=== PATIENT | male | born 1955 | race Caucasian/White ===

== ENCOUNTER 2020-09-08 07:48 | Observation (INO) | payer OTHER ==
[~2020-09-08] VITALS: Ht 182.9 cm; Wt 97.5 kg
[2020-09-08] VITALS (14 sets, daily range): BP systolic 109–168; BP diastolic 58–90
--- NOTE | ~2020-09-08 | D ---
[address] [address] DISCHARGE SUMMARY Name: RADHA SANTOS Room: [address] Efren MGiovanniRGiovanni#: [id number] Admission: 09/08/20 Attend Phys: Michael Vargas MD, Discharge: Date of : 57 Report #: [id number] THIS REPORT FOR: cc: John Stroud MD, Michael S. MD ~ Michael Vargas MD [facility] FINAL DISCHARGE DIAGNOSES: 1. Unstable angina. 2. Coronary artery disease. 3. Status post PCI to the LAD and first diagonal. 4. Hypertension. 5. Hyperlipidemia. 6. Type 2 diabetes. PROCEDURES: 09/08/2020 -- left heart catheterization, left ventriculography, selective coronary arteriography and atherectomy with stenting of the LAD with angioplasty and stenting of the first diagonal branch of the LAD. HISTORY OF PRESENT ILLNESS AND HOSPITAL COURSE: The patient is a very pleasant 64-year-old male with complex coronary artery disease, status post remote inferior infarction and multivessel stenting. Of late, he has noted recrudescence of chest pain typical of his prior anginal syndrome, brought on by moderate amount of activity. He has underlying hypertension, hypercholesterolemia, and diabetes. He is compliant with antihypertensives, antiplatelets, lipid lowering, and oral diabetic therapy without side effects of same. In that context, I performed cardiac catheterization on 09/08/2020. That study revealed significant coronary artery disease characterized by 80% distal LAD stenosis with tandem 80% and 90% proximal and mid first diagonal stenosis. There was a widely patent proximal-mid LAD stent. The circumflex demonstrated a 50% proximal, 75% mid and distal stenosis. The right coronary artery demonstrated a widely patent stent with no significant narrowings. LV function was low normal and estimated ejection fraction of 50% with mid anterior hypokinesis. Given this data, I elected to proceed with PCI, performing atherectomy with stenting of the distal LAD with 10% residual narrowing and angioplasty with stenting of the first diagonal branch with 10% residual narrowing following stent deployment and ALBERT 3 flow of the distal vessel. The patient did well post-procedurally without chest pain. Troponin remained in the reference range of less than 0.06. Additional lab was with hemoglobin of 13.5, white blood cell count 7600, and 163,000 platelets. Sodium 140, potassium [facility] [address] [place] [address] DISCHARGE SUMMARY Name: RADHA SANTOS Room: [address]#: [id number] Admission: 09/08/20 Attend Phys: Michael Vargas MD, Discharge: Date of : 57 Report #: [id number] 3.8, BUN 9, creatinine 0.9, cholesterol 182, LDL 100, triglycerides 237. The patient ambulated in the hallways without difficulty and there was good hemostasis at the right femoral site of catheterization. DISCHARGE MEDICATIONS: He was discharged to home on the following medications: Lisinopril 20 mg daily, metoprolol tartrate 25 mg b.i.d., p.r.n. sublingual nitroglycerin, Crestor 40 mg daily, amlodipine 5 mg daily, glimepiride 4 mg b.i.d., metformin 1000 mg daily to be resumed on 09/10/2020. I will plan to see the patient in the office in 4 weeks for clinical followup. He may require staged intervention of the circumflex. These issues were discussed in detail with the patient. Therefore, the patient is discharged to home in stable condition on the aforementioned medications with followup as iterated above. By: 1020 1057Michael Vargas MD, FACC /nt
[~2020-09-08 07:48] MED LIST: AMARYL4 MG PO; ASPIRIN EC325 M1 PO; ASPIRIN81 M2 PO; CRESTOR40 MG PO; EFFIENT10 MG PO; FISH OIL 1,0001 EAC5 PO; GLUCOPHAGE1000 MG PO; LISINOPRIL-HCT1 EAC2 PO; LOPRESSOR25 PO; METAMUCIL0.52 GM PO; MULTIVITAMINS1 EAC7 PO; NITROGLYCERIN0.4 MG SL; NORVASC5 MG PO; PLAVIX 75 MG TA75 MG PO; PRINIVIL10 MG PO
[2020-09-08 08:52] LABS: HEMATOCRIT 47.9 % (42.0-52.0); HEMOGLOBIN 16.4 gm/dL (14.0-18.0); MCH 30.7 pg (26.0-34.0); MCHC 34.2 g/dL (28.0-37.0); MCV 89.5 fL (80.0-100.0); RBC 5.35 mil/uL (4.50-6.00); RDW-CV 13.4 % (10.5-14.5); WBC 8.3 thou/uL (4.0-11.0)
[2020-09-08 09:02] LABS: APTT 22.5 Seconds (25.0-31.3); INR 0.9
[2020-09-08 09:23] LABS: ALBUMIN 4.3 g/dL (3.4-5.0); ALKALINE PHOSPHATASE 66 U/L (46-116); ANION GAP 10 mmol/L (7-16); BUN 10 mg/dL (7-18); CALCIUM 9.1 mg/dL (8.5-10.1); CHLORIDE 100 mmol/L (98-107); CHOLESTEROL 182 mg/dL (<200); CO2 27 mmol/L (21-32); CREATININE 0.9 mg/dL (0.6-1.3); GLUCOSE 181 mg/dL (70-99); HDL CHOLESTEROL 35 mg/dL (>40); LDL CHOLESTEROL 100 mg/dL (<100); POTASSIUM 3.8 mmol/L (3.5-5.1); SGOT 17 U/L (15-37); SGPT 40 U/L (30-65); SODIUM 137 mmol/L (136-145); TC:HDL 5.2 Ratio (Not establshd); TOTAL BILIRUBIN 0.4 mg/dL (<0.1-1.0); TRIGLYCERIDE 237 mg/dL (<150); VLDL 47 mg/dL (<40)
[2020-09-08 09:26] LABS: SERUM ASSESSMENT Clear
--- NOTE | 2020-09-08 09:44 | EKG ---
[place] [address] ELECTROCARDIOGRAM REPORT Name: RADHA SANTOS Room: [facility]#: [id number] Admission: 09/08/20 Attend Phys: Courtney Olivarez Discharge: Date of : 57 Date of Service: 09/08/20 0850 Report #: [id number] THIS REPORT FOR: //name// [facility] Test Date: 2020-09-08 Test Time: 08:50:46 Pat Name: RADHA SANTOS Department: Room: Gender: Manager Product Management: RIGOBERTO : 1955 Requested By: Michael Vargas Order Number: [id number] Reading MD: Michael Vargas Measurements Intervals [place] Rate: 64 P: 23 UT: 169 QRS: -27 QRSD: 102 T: 32 QT: 423 QTc: 437 Interpretive Statements Sinus rhythm Multiple premature complexes, vent & supraven Inferior infarct, old Compared to ECG 06/25/2013 08:03:07 Myocardial infarct finding still present T wave abnormalities have remitted Electronically Signed On 09-08-2020 9:44:16 SHANK STAPLER by Michael Vargas [email or web address] <ELECTRONICALLY SIGNED> By: Michael Vargas MD, [facility] 09/08/20 0944 0850 0850 Michael Vargas MD, [facility] /EPI
--- NOTE | 2020-09-08 13:37 | CARD ---
[address] [address] CARDIAC CATH REPORT Name: RADHA SANTOS Room: [address] Efren M.RGiovanni#: [id number] Admission: 09/08/20 Attend Phys: Michael Vargas MD, Discharge: Date of : 57 Report #: [id number] THIS REPORT FOR: cc: John Stroud MD, Michael S. MD ~ Michael Vargas MD [facility] APPROVED REPORT Study performed: 09/08/2020 09:11:20 Patient Details Patient Status: Out-Patient Room #: The patient is a 64 year-old male Event Personnel Ayden Maloney RTR Monitor, Santo Pham Holkins, John Community Development Officer, Paris Stanton RN auditor in charge Performed Left Heart Cath w/or w/o Coronaries [id number] [facility] w/wo Plasty Addl BR DIAG 1 C9601 ARMAAN w/Atherectomy Single LAD C9602 [id number] Hemostasis w/ Angioseal Indication Unstable angina Risk Factors Obesity, Hypercholesterolemia, Hypertension, Diabetes Previous Procedures/Diagnoses Previous PCI, Previous AR Admission/Lab Medications/Medications given during procedure Fentanyl IV 25 mcg, Midazolam (Versed) IV 2 mg, Lidocaine Subcut 20 ml, Angiomax IV 15 ml, Angiomax IV 34.19 ml per hr, Nitroglycerin IC 200 mcg, Midazolam (Versed) IV 1 mg, Nitroglycerin IC 150 mcg, Aspirin PO 162 mg, Effient PO 60 mg Procedure Narrative The patient was brought electively to the Cardiac Catheterization Laboratory and was prepped and draped in a sterile manner. The right femoral was infiltrated with 2% Lidocaine subcutaneous anesthesia. A [place] 6 FR sheath was inserted into the right femoral artery. Coronary angiography was performed [place] [address] CARDIAC CATH REPORT Name: ARDHA SANTOS Room: [address] M.R.#: [id number] Admission: 09/08/20 Attend Phys: Michael Vargas MD, Discharge: Date of : 57 Report #: [id number] catheters. The right coronary system was accessed and visualized with a Diagnostic JR4 6Fr catheter. The left coronary system was accessed and visualized with a Diagnostic JL4 6Fr catheter. The left ventricle was accessed and visualized with a Diagnostic Pigtail 6Fr catheter. Left ventricular/Aortic Valve gradient assessed via catheter pullback. Pre-demployment femoral angiogram was performed . Closure device was deployed with a 6 Fr Angioseal. The patient tolerated the procedure well and there were no complications associated with the procedure. There was no hematoma. Intraoperative Conscious Sedation Sedation start time: 953 Case end Time: 112 Fentanyl 50 mcg Versed 3 mg Fluoro Time: 23.2 minutes Dose: DAP 205069 cGycm2 4250.67 mGy Contrast Type and Amount: Visipaque 480 ml Diagnostic Cath Left Main 40% distal narrowing LAD 30% proximal narrowing with 80% distal stenosis; there were widely patent proximalmid LAD stents; there was 80% ostial and 90% mid first diagonal stenosis Circumflex 50% proximal with 75% mid and 75% distal stenosis Right Coronary Dominant vessel it with widely patent proximalmid vessel stents with 30% mid vessel narrowing Left Ventriculography The left ventricle is normal in size with normal contractility. The left ventricular ejection fraction is estimated to be 50%. Left ventricular wall motion abnormalities are present. There is 1+ mitral insufficiency. Mid anterior hypokinesis is noted Hemodynamics The aortic pressure is 144/54 mmHg with a mean of 90 mmHg. The left ventricular pressure is 129/-1 mmHg with a mean of mmHg. The left ventricular end diastolic pressure is 13 mmHg. There was no gradient across the aortic valve upon pullback. PCI Technique Lesion Percutaneous coronary intervention was performed on the first diagnonal branch segment. The lesion stenosis prior to intervention was 90% with ALBERT 3 flow. A 6Fr XB LAD 3.5 Guide Catheter was used to engage the Left ostium. A IG: BMW 190cm [place] [address] CARDIAC CATH REPORT Name: RADHA SANTOS Room: [address] M.R.#: [id number] Admission: 09/08/20 Attend Phys: Michael Vargas MD, Discharge: Date of : 57 Report #: [id number] used to cross the lesion. BALLOON DILATION A Balloon catheter Mini Trek RX 1.5 X 12 was inserted and inflated up to 18.00atm for 13seconds. Additional Inflation: 20.00atm for 8seconds. A Balloon catheter NC Trek 2.0 X 12 was inserted and inflated up to 15.00atm for 10 seconds. Additional Inflation: 15.00 floyd for 7 seconds. Additional Inflation: 16.00 floyd for 8 seconds. A Balloon catherter NC Trek 2.25 X 8 was inserted and inflated up to 16.00atm for 10 seconds. STENT DEPLOYMENT A drug-eluting stent Johnny RX Stent 2.0X18mm was inserted and inflated up to 10.00atm for 10seconds. Additional Inflation: 12.00atm for 10seconds. Additional Inflation: 16.00atm for 9seconds. A Drug-Eluting Stent JOHNNY RX Stent 2.25X8mm was inserted and inflated up to 12.00 floyd for 14 seconds. Additional Inflation: 17.00atm for 8 seconds. Additional Inflation: 18atm for 8 seconds. Final angiography reveals 10 % stenosis with ALBERT 3 flow. PCI Technique Lesion 2 Percutaneous Coronary Intervention was performed on the Distal left anterior descending artery segment. The lesion stenosis prior to intervention was 80% with ALBERT 3 flow. A 6FR XB LAD 3.5 Guide Catheter was used to engage the Left ostium. A IG: BMW 190cm Interventional Guidewire was used to cross the lesion. Balloon Dilation A Balloon catheter NC Trek RX 2.0 X 12 was inserted and inflated up to 15.00atm for 12seconds. Additional Inflation: 17.00atm for 9seconds. A Cutting Balloon Angiosculpt PTCA 2.0X10mm was inserted and inflated up to 12.00 floyd for 15 seconds. Additional Inflation: 12.00 for 15 seconds. Additonal Inflation: 13.00 for 17 seconds. Stent Deployment A drug-eluting stent Johnny RX Stent 2.0X12mm was inserted and inflated up to 10.00atm for 13seconds. Additional Inflation: 10.00atm for 8seconds. Final angiography reveals 10 % stenosis with ALBERT [address] [address] CARDIAC CATH REPORT Name: SANTOSRADHA Room: [address] M.R.#: [id number] Admission: 09/08/20 Attend Phys: Michael Vargas MD, Discharge: Date of : 57 Report #: [id number] The PCI was technically complex by virtue of bifurcation LAD diagonal disease requiring atherectomy with stenting of the LAD and angioplasty with stenting of the first diagonal branch of the LAD. Conclusion 1. Significant coronary artery disease characterized by the following: A 30% proximal and 80% distal LAD stenosis; there was 80% ostial and 90% mid first diagonal stenosis B 50% proximal with 75% mid and distal circumflex stenoses C dominant right coronary artery with widely patent proximalmid vessel stents with 30% mid right coronary narrowing 2. Low normal global left ventricular systolic function, estimate ejection fraction being 50% with mid anterior hypokinesis noted 3. Normal left-sided hemodynamic study 4. Successful atherotomy/atherectomy with stenting of the distal LAD with 10% residual narrowing and ALBERT-3 flow to the distal vessel 5. Successful angioplasty with stenting of the ostial and mid first diagonal with 10% residual narrowing and ALBERT-3 flow the distal vessel Recommendations Cardiac Risk Reduction Program Aggressive Medical Therapy Medications Administered Aspirin (any) Prasugrel Diagnostic Cath Approved by: Michael Vargas MD Date/Time: 09/08/2020 13:33:06 <ELECTRONICALLY SIGNED> By: Michael Vargas MD, [facility] 09/08/20 1337 1337 1337Michael Vargas MD, [facility] /INF
--- NOTE | 2020-09-08 18:02 | NUR ---
PT IS ALERT AND ORIENTED X4 UP FROM 3 STENTS TODAY TO RIGHT GROIN SOME FIRMNESS WITH HEMATOMA TO SITE BUT NO DISCOLORATION OR BLEEDING SOME TENDERNESS ACCORDING TO PT, PT CAN GET UP AND AMBULATE NOW VS WNL GAVE HOME MEDS STILL NEEDS TO COME BACK FOR ANOTHER STENT BUT SHOULD DC TOMORROW SR TO BBB, SR WITH PACS AND PVCS SB CALL LIGHT IN REACH USES URINAL
[2020-09-09 04:30] VITALS: BP 116/68
[2020-09-09 04:36] LABS: HEMATOCRIT 40.4 % (42.0-52.0); MCH 30.2 pg (26.0-34.0); MCHC 33.4 g/dL (28.0-37.0); MCV 90.4 fL (80.0-100.0); MPV 9.2 fl. (7.2-11.1); RBC 4.47 mil/uL (4.50-6.00); RDW-CV 13.6 % (10.5-14.5); WBC 7.6 thou/uL (4.0-11.0)
[2020-09-09 05:23] LABS: ALBUMIN 3.2 g/dL (3.4-5.0); ALKALINE PHOSPHATASE 49 U/L (46-116); ANION GAP 10 mmol/L (7-16); BUN 9 mg/dL (7-18); CALCIUM 8.5 mg/dL (8.5-10.1); CHLORIDE 106 mmol/L (98-107); CO2 24 mmol/L (21-32); CREATININE 0.9 mg/dL (0.6-1.3); GLUCOSE 132 mg/dL (70-99); POTASSIUM 3.8 mmol/L (3.5-5.1); SGOT 10 U/L (15-37); SGPT 28 U/L (30-65); SODIUM 140 mmol/L (136-145); TOTAL BILIRUBIN 0.4 mg/dL (<0.1-1.0); TOTAL PROTEIN 6.1 g/dL (6.4-8.2); TROPONIN-I LEVEL <0.06 ng/mL (<0.06)
--- NOTE | 2020-09-09 05:52 | NUR ---
No acute event this shift. Pt denies pain. Pt sleep most of the night. Pt R groin cath site intact. Pt VS stable. Call light within reach, will continue POC.
[2020-09-09 06:02] LABS: HEMOGLOBIN 13.5 gm/dL (14.0-18.0)
[2020-09-09 07:20] VITALS: BP 124/68
[2020-09-09] MEDS ORDERED: EFFIENT10 MG PO (10:12)
--- NOTE | 2020-09-09 10:34 | EKG ---
[place] [address] ELECTROCARDIOGRAM REPORT Name: RADHA SANTOS Room: [address] M.R.#: [id number] Admission: 09/08/20 Attend Phys: Courtney Olivarez Discharge: Date of : 57 Date of Service: 09/08/20 1203 Report #: [id number] THIS REPORT FOR: //name// [facility] Test Date: 2020-09-08 Test Time: 12:03:02 Pat Name: RADHA SANTOS Department: Room: [facility] Gender: M Environmental Resource Specialist: RIGOBERTO : 1955 Requested By: Michael Vargas Order Number: [id number] Afia MD: Italo Davila Measurements Intervals [place] Rate: 51 P: 25 VA: 176 QRS: -23 QRSD: 95 T: 37 QT: 457 QTc: 421 Interpretive Statements Sinus bradycardia Inferior infarct, old Compared to ECG 09/08/2020 08:50:46 pvc no longer seen Electronically Signed On 09-09-2020 10:34:41 TRANSMISSION WORKER by Italo Davila [email or web address] <ELECTRONICALLY SIGNED> By: Italo Davila MD, FAC 09/09/20 1034 1203 1203 Italo Davila MD, [facility] /EPI
[2020-09-09 11:12] VITALS: BP 124/68
[2020-09-09 11:14] VITALS: BP 124/68
--- NOTE | 2020-09-11 10:58 | NUR ---
Nutrition: Consult received for DM, CAD diet instructions. Pt was discharged over the weekend. Called him at home today. He denied any nutrition questions at this time. He is going to see his doctor in two weeks for possibly another stent. He wants to wait until then for further education. Encouraged him to call RD with questions/concerns about his diet. He was grateful for the call and will call with questions.
--- NOTE | 2020-09-11 11:06 | EKG ---
[place] [address] ELECTROCARDIOGRAM REPORT Name: RADHA SANTOS Room: [address] M.R.#: [id number] Admission: 09/08/20 Attend Phys: Courtney Olivarez Discharge: 09/09/20 Date of : 57 Date of Service: 09/09/20 1026 Report #: [id number] THIS REPORT FOR: //name// [facility] Test Date: 2020-09-09 Test Time: 10:26:48 Pat Name: RADHA SANTOS Department: Room: [facility] Gender: M Projection Printer: [facility] [employer] : 1955 Requested By: Michael Vargas Order Number: [id number] Reading MD: Italo Davila Measurements Intervals [place] Rate: 74 P: 32 MD: 177 QRS: -22 QRSD: 106 T: 37 QT: 407 QTc: 452 Interpretive Statements Sinus rhythm Ventricular premature complex Abnormal R-wave progression, early transition Inferior infarct, old Compared to ECG 09/08/2020 12:03:02 Ventricular premature complex(es) now present Sinus bradycardia no longer present Myocardial infarct finding still present Electronically Signed On 09-11-2020 11:06:32 SENIOR PRICING ANALYST by Italo Davila [email or web address] <ELECTRONICALLY SIGNED> By: Italo Davila MD, [facility] 09/11/20 1106 1026 1026 Italo Davila MD, [facility] /EPI
== END 2020-09-09 15:11 | disposition home or self-care (01) ==
LOC: M.CL → EDBD 09:00 → M.TBA-CV 11:45 → M.2W 11:45
PROVIDERS: ADMIT Internal Medicine; ATTEND Internal Medicine
DX: I25.110 Atherosclerotic heart disease of native coronary artery with unstable angina pectoris (principal); I10 Essential (primary) hypertension; E78.5 Hyperlipidemia, unspecified; E11.9 Type 2 diabetes mellitus without complications; E78.00 Pure hypercholesterolemia, unspecified; Z20.828 Contact with and (suspected) exposure to other viral communicable diseases

== ENCOUNTER 2020-11-13 11:00 | Observation (INO) | payer OTHER ==
[~2020-11-13] VITALS: Ht 190.5 cm; Wt 97.5 kg
[2020-11-13] VITALS (13 sets, daily range): BP systolic 120–147; BP diastolic 67–82
--- NOTE | ~2020-11-13 | EKG ---
[place] [address] ELECTROCARDIOGRAM REPORT Name: RADHA SANTOS Room: [facility]#: [id number] Admission: 11/13/20 Attend Phys: Courtney Olivarez Discharge: Date of : 57 Date of Service: 11/13/201516 Report #: [id number] THIS REPORT FOR: //name// [facility] Test Date: 2020-11-13 Test Time: 15:17:24 Pat Name: RADHA SANTOS Department: Room: Gender: Sail Repair Person: RIGOBERTO : 1955 Requested By: Michael Vargas Order Number: [id number] Reading MD: Measurements Intervals [place] Rate: 66 P: -29 MT: 181 QRS: -27 QRSD: 96 T: 27 QT: 427 QTc: 448 Interpretive Statements Sinus rhythm Inferior infarct, old Minimal ST elevation, anterior leads Compared to ECG 09/09/2020 10:26:48 ST (T wave) deviation now present Ventricular premature complex(es) no longer present Myocardial infarct finding still present [email or web address] By: 16 1517 [place] /SATNAM
[2020-11-13 11:41] LABS: HEMATOCRIT 41.3 % (42.0-52.0); HEMOGLOBIN 14.1 gm/dL (14.0-18.0); MCH 31.2 pg (26.0-34.0); MCHC 34.3 g/dL (28.0-37.0); MCV 90.9 fL (80.0-100.0); MPV 9.4 fl. (7.2-11.1); RBC 4.54 mil/uL (4.50-6.00); RDW-CV 13.7 % (10.5-14.5); WBC 5.8 thou/uL (4.0-11.0)
[2020-11-13 11:49] LABS: ANION GAP 10 mmol/L (7-16); BUN 9 mg/dL (7-18); CALCIUM 8.7 mg/dL (8.5-10.1); CHLORIDE 101 mmol/L (98-107); CO2 23 mmol/L (21-32); GLUCOSE 258 mg/dL (70-99); POTASSIUM 4.2 mmol/L (3.5-5.1); SODIUM 134 mmol/L (136-145)
[2020-11-13 11:53] LABS: APTT 22.7 Seconds (25.0-31.3); PROTIME 10.8 Seconds (9.20-11.50)
[2020-11-13 11:53] LABS: ALBUMIN 3.9 g/dL (3.4-5.0); ALKALINE PHOSPHATASE 69 U/L (46-116); CHOLESTEROL 129 mg/dL (<200); HDL CHOLESTEROL 34 mg/dL (>40); LDL CHOLESTEROL 51 mg/dL (<100); SGOT 48 U/L (15-37); SGPT 96 U/L (30-65); TC:HDL 3.8 Ratio (Not establshd); TOTAL BILIRUBIN 0.6 mg/dL (<0.1-1.0); TOTAL PROTEIN 7.6 g/dL (6.4-8.2); TRIGLYCERIDE 224 mg/dL (<150); VLDL 45 mg/dL (<40)
[2020-11-13 11:55] LABS: SERUM ASSESSMENT Clear
[2020-11-13] MEDS ORDERED: ASA81BEC PO (12:13)
[2020-11-13] MEDS ORDERED: LIPITOR80 MG PO (13:44)
[2020-11-13] MEDS ORDERED: EFFIENT10 MG PO (13:44)
--- NOTE | 2020-11-13 18:14 | CARD ---
[address] [address] CARDIAC CATH REPORT Name: RADHA SANTOS Room: [address] Efren M.RGiovanni#: [id number] Admission: 11/13/20 Attend Phys: Michael Vargas MD, Discharge: Date of : 57 Report #: [id number] THIS REPORT FOR: cc: John Stroud MD, Michael S. MD Holkins, John M. MD [facility] ~ APPROVED REPORT Study performed: 11/13/2020 12:12:53 Patient Details Patient Status: Out-Patient Room #: The patient is a 64 year-old male Event Personnel Ayden Maloney RTR Monitor, Santo Pham Subedi, Sujita RN RN, Michael Vargas Puncher, Janine Pompa RTR Monitor, Carolee Buck RN manager utility Performed Left Heart Cath w/or w/o Coronaries [id number] [facility] Art Access - R femoral artery* ARMAAN w/Atherectomy Single CIRC C9602 DESAT Hemostasis w/ Angioseal Indication Unstable angina Risk Factors Hypercholesterolemia, Hypertension, Diabetes Previous Procedures/Diagnoses Previous PCI, Previous MS Admission/Lab Medications/Medications given during procedure Oxygen Nasal cannula 2 l per min, 0.9% Sodium Chloride IV 150 ml per hr, Fentanyl IV 50 mcg, Midazolam (Versed) IV 2 mg, Lidocaine Subcut 20 ml, Fentanyl IV 25 mcg, Midazolam (Versed) IV 1 mg, Angiomax IV 15 ml, Angiomax Drip IV 34.2 ml per hr, Nitroglycerin IC 200 mcg, Nitroglycerin IC 150 mcg, Aspirin PO 162 mg, Effient PO 30 mg Procedure Narrative The patient was brought electively to the Cardiac Catheterization Laboratory and was prepped and draped in a [place] [address] CARDIAC CATH REPORT Name: RADHA SANTOS Room: [address] M.R.#: [id number] Admission: 11/13/20 Attend Phys: Michael Vargas MD, Discharge: Date of : 57 Report #: [id number] femoral was infiltrated with 2% Lidocaine subcutaneous anesthesia. A [place] 6 FR sheath was inserted into the right femoral artery. Coronary angiography was performed using coronary diagnostic catheters. The right coronary system was accessed and visualized with a Diagnostic JR4 6Fr catheter. The left coronary system was accessed and visualized with a Diagnostic JL4 6Fr catheter. The left ventricle was accessed and visualized with a Diagnostic Pigtail 6Fr catheter. Left ventricular/Aortic Valve gradient assessed via catheter pullback. Pre-demployment femoral angiogram was performed . Closure device was deployed with a 6 Fr Angioseal. The patient tolerated the procedure well and there were no complications associated with the procedure. There was no hematoma. Intraoperative Conscious Sedation Sedation start time: 1240 Case end Time: 1344 Fentanyl 75 mcg Versed 3 mg Fluoro Time: 19.9 minutes Dose: DAP 653812 cGycm2 3611 mGy Contrast Type and Amount: Visipaque 420 ml Diagnostic Cath Left Main 30% distal narrowing LAD Widely patent proximal and distal LAD stents with a widely patent first diagonal stent Circumflex 30% proximal narrowing 80% focal mid vessel narrowing 90% calcified distal circumflex stenosis Right Coronary Dominant vessel with widely patent proximal stents and 50% posterior descending branch narrowing Left Ventriculography The left ventricle is normal in size with normal contractility. The left ventricular ejection fraction is estimated to be 55%. Left ventricular wall motion abnormalities are present. There is no mitral insufficiency. Mid inferior hypokinesis is noted Hemodynamics The aortic pressure is 101/54 mmHg with a mean of 76 mmHg. The left ventricular pressure is 102/5 mmHg with a mean of mmHg. The left ventricular end diastolic pressure is 8 mmHg. There was no gradient across the aortic valve upon pullback. PCI Technique Lesion Anticoagulation was achieved with Angiom[place] [address] CARDIAC CATH REPORT Name: RADHA SANTOS Room: [address] M.R.#: [id number] Admission: 11/13/20 Attend Phys: Michael Vargas MD, Discharge: Date of : 57 Report #: [id number] intervention was performed on the mid circumflex artery segment. The lesion stenosis prior to intervention was 80% with ALBERT 3 flow. A 6F XB LAD 3.5 Guide Catheter was used to engage the Left ostium. A IG: BMW 190cm Interventional Guidewire was used to cross the lesion. BALLOON DILATION A Balloon catheter NC Trek RX 2.0 X 8 was inserted and inflated up to 10.00atm for 9seconds. Additional Inflation: 14.00atm for 8seconds. Additional Inflation: 22.00atm for 8seconds. A Cutting Balloon AngioSculpt 2.0X6mm was inserted and inflated up to 8.00 floyd for 14 seconds. Additional Inflation: 18.00 floyd for 19 seconds. A Balloon Catheter EA NC Trek 2.75 X 8 was inserted and inflated up to 20.00 floyd for 12 seconds. Additional Inflation: 22.00 floyd for 11 seconds. STENT DEPLOYMENT A drug-eluting stent Johnny RX Stent 2.75X8mm was inserted and inflated up to 15.00atm for 8seconds. Additional Inflation: 16.00atm for 8seconds. Final angiography reveals 0 % stenosis with ALBERT 3 flow. PCI Technique Lesion 2 Percutaneous Coronary Intervention was performed on the distal circumflex artery segment. The lesion stenosis prior to intervention was 90% with ALBERT 3 flow. Balloon Dilation A Balloon catheter NC Trek RX 2.0 X 8 was inserted and inflated up to 18atm for 10seconds. Stent Deployment 2.0 x 10 angiosculpt inflated slowly to 8 floyd Final angiography reveals 30 % stenosis with ALBERT 3 flow. Conclusion 1. Significant multivessel coronary artery disease characterized by the following: A 30% distal left main coronary artery narrowing B widely patent proximal and distal LAD stents [address] [address] CARDIAC CATH REPORT Name: RADHA SANTOS Room: [address] Efren PettitRGiovanni#: [id number] Admission: 11/13/20 Attend Phys: Michael Vargas MD, Discharge: Date of : 57 Report #: [id number] C 30% proximal circumflex narrowing with 80% focal mid vessel stenosis and 90% heavily calcified distal circumflex stenosis D dominant right coronary artery with widely patent proximal stents and 50% posterior descending branch narrowing 2. Normal global LV function, estimated ejection fraction being 55% with mid inferior hypokinesis 3. Normal left-sided hemodynamic study 4. Successful PCI with angioplasty and deployment of a drug-eluting stent at the site of 80% mid circumflex stenosis and atherotomy/atherectomy at the site of 90% distal circumflex stenosis with 0 and 30% residual narrowings and ALBERT-3 flow the distal vessel Recommendations Cardiac Risk Reduction Program Aggressive Medical Therapy Medications Administered Aspirin (any) Prasugrel Diagnostic Cath Approved by: Michael Vargas MD Date/Time: 11/13/2020 18:10:53 <ELECTRONICALLY SIGNED> By: Michael Vargas MD, [facility] 11/13/201812 12 12Michael Vargas MD, FACC /INF
[2020-11-14] VITALS: BP 144/72
--- NOTE | 2020-11-14 04:04 | NUR ---
ASSUMED PT CARE AT APPROX. 1930. PT A/OX4. PT SITTING UPRIGHT IN BED. PT ADMITTED POST CARDIAC CATH W/ STENT PLACED X1. PT'S RIGHT GROIN DRESSING WAS INTACT. SMALL AMOUNT OF DRIED, RED BLOOD NOTED ON DRESSING. RIGHT GROIN PALPATED. NO BRUISING OR HEMATOMA NOTED. PT DENIED C/O PAIN. PULSES PRESENT 2+ BLLE. CAPILLARY REFILL IS PRESENT AND LESS THAN 3 SEC. PT IS ON TELE MONITOR IS SINUS ARRYTHMIA WITH PAC'S. PT VSS. PT IS AFEBRILE. PT IS CURRENTLY RESTING IN BED, NO C/O VOICED. FALL PRECAUTIONS IN PLACE FOR SAFETY. MEDICATIONS ADMINISTERED PRESCRIBED. HOURLY ROUNDING COMPLETE CHARTED. CALL LIGHT WITHIN REACH. WILL CONT. TO MONITOR.
[2020-11-14 04:11] VITALS: BP 150/59
[2020-11-14 06:12] LABS: HEMATOCRIT 39.6 % (42.0-52.0); HEMOGLOBIN 13.5 gm/dL (14.0-18.0); MCH 31.1 pg (26.0-34.0); MCHC 34.1 g/dL (28.0-37.0); MCV 91.1 fL (80.0-100.0); MPV 9.5 fl. (7.2-11.1); RBC 4.34 mil/uL (4.50-6.00); RDW-CV 13.3 % (10.5-14.5); WBC 6.4 thou/uL (4.0-11.0)
[2020-11-14 06:29] LABS: ALBUMIN 3.5 g/dL (3.4-5.0); ALKALINE PHOSPHATASE 64 U/L (46-116); ANION GAP 9 mmol/L (7-16); BUN 7 mg/dL (7-18); CALCIUM 8.3 mg/dL (8.5-10.1); CHLORIDE 104 mmol/L (98-107); CO2 25 mmol/L (21-32); CREATININE 0.9 mg/dL (0.6-1.3); GLUCOSE 189 mg/dL (70-99); POTASSIUM 3.7 mmol/L (3.5-5.1); SGOT 24 U/L (15-37); SGPT 73 U/L (30-65); SODIUM 138 mmol/L (136-145); TOTAL BILIRUBIN 0.6 mg/dL (<0.1-1.0); TOTAL PROTEIN 6.9 g/dL (6.4-8.2); TROPONIN-I LEVEL <0.06 ng/mL (<0.06)
--- NOTE | 2020-11-14 09:40 | H ---
[place] [address] HISTORY AND PHYSICAL Name: RADHA SANTOS Room: [address] Efren An#: [id number] Admission: 11/13/20 Attend Phys: Michael Vargas MD, Discharge: Date of : 57 Report #: [id number] THIS REPORT FOR: cc: John Stroud MD, Michael S. MD Holkins,Michael Pettit MD [facility] ~ The patient to be admitted on 11/13/2020. HISTORY OF PRESENT ILLNESS: The patient is a very pleasant 64-year-old male with complex coronary artery disease. He recently had an unstable angina, underwent cardiac catheterization in August, which revealed significant LAD, diagonal and circumflex stenosis. In that setting, I performed PCI on the LAD with atherectomy and stenting, performed an angioplasty on the first diagonal with a good angiographic result. By virtue of dye load at that point, I elected not to proceed with further intervention of the circumflex. Since then, his pattern of angina has improved, but there is some persistent discomfort with activity. He does have risk factors for coronary artery disease including type 2 diabetes, hypertension and tobacco abuse as well as hypercholesterolemia. MEDICATIONS: Include amlodipine 5 mg daily, Plavix 75 mg daily, Amaryl 4 mg 2 times a day, lisinopril 20 mg b.i.d., metformin 1000 mg daily, metoprolol tartrate 25 mg b.i.d., p.r.n. sublingual nitroglycerin, and Crestor 40 mg daily. PAST MEDICAL HISTORY: Remarkable for the aforementioned risk factors of diabetes, hypertension, tobacco abuse. There is also a history of paroxysmal atrial fibrillation. SOCIAL HISTORY: There is significant prior cigarette use. He continues to smoke moderately. He is going through a divorce at present. REVIEW OF SYSTEMS: Remarkable for the following: ENDOCRINE: He notes a mild to moderately satisfactorily controlled diabetes. CARDIAC: There is a history of chest discomfort with exertion. Remainder of the 10-point review of systems is unremarkable. PHYSICAL EXAMINATION: GENERAL: Reveals a modestly overweight middle-aged -[place] male. VITAL SIGNS: Blood pressure is 135/70, pulse rate is 66, respirations are 18 per minute. NECK: Jug[place] [address] HISTORY AND PHYSICAL Name: RADHA SANTOS [address] [id number] Admission: 11/13/20 Attend Phys: Michael Vargas MD, Discharge: Date of : 57 Report #: [id number] CHEST: Clear. CARDIAC: Reveals normal first and second heart sounds with a soft systolic murmur without rubs or gallops. ABDOMEN: Mildly obese. EXTREMITIES: Without edema with intact femoral, pedal and radial pulses. IMPRESSION: 1. Unstable angina. 2. Coronary artery disease, status post recent PCI to the LAD and first diagonal with contemplated PCI to the circumflex. 3. Type 2 diabetes. 4. Hypertension. 5. Paroxysmal atrial fibrillation. 6. Tobacco abuse. 7. Hypercholesterolemia. RECOMMENDATIONS: Given the aforementioned clinical scenario, I would plan cardiac catheterization on 11/13/2020 with review of the recent results of the LAD and diagonal and strong consideration of percutaneous coronary intervention to the circumflex. This has been discussed with the patient. <ELECTRONICALLY SIGNED> By: Michael Vargas MD, FACC 11/14/20 0940 0908 [id number] Vargas MD, FAC /nt
[2020-11-14 10:58] VITALS: BP 150/59
--- NOTE | 2020-11-14 14:14 | EKG ---
[place] [address] ELECTROCARDIOGRAM REPORT Name: RADHA SANTOS Room: [address] M.R.#: [id number] Admission: 11/13/20 Attend Phys: Courtney Olivarez Discharge: 11/14/20 Date of : 57 Date of Service: 11/13/20 1517 Report #: [id number] THIS REPORT FOR: //name// [facility] Test Date: 2020-11-13 Test Time: 15:17:24 Pat Name: RADHA SANTOS Department: Room: [facility] Gender: M [employer] Officer: RIGOBERTO : 1955 Requested By: Michael Vargas Order Number: [id number] Reading MD: John Moy Measurements Intervals [place] Rate: 66 P: -29 [place]: 181 QRS: -27 QRSD: 96 T: 27 QT: 427 QTc: 448 Interpretive Statements Sinus rhythm Inferior infarct, old Minimal ST elevation, anterior leads Compared to ECG 09/09/2020 10:26:48 ST (T wave) deviation now present Ventricular premature complex(es) no longer present Myocardial infarct finding still present Electronically Signed On 11-14-2020 14:14:16 CDT by John Moy [email or web address] <ELECTRONICALLY SIGNED> By: John Moy MD, FAC 11/14/20 1414 1517 1517 John Moy MD, [facility] /EPI
--- NOTE | 2020-11-14 14:22 | EKG ---
[place] [address] ELECTROCARDIOGRAM REPORT Name: RADHA SANTOS Room: [address] M.R.#: [id number] Admission: 11/13/20 Attend Phys: Courtney Olivarez Discharge: 11/14/20 Date of : 57 Date of Service: 11/14/20822 Report #: [id number] THIS REPORT FOR: //name// [facility] Test Date: 2020-11-14 Test Time: 08:23:58 Pat Name: RADHA SANTOS Department: Room: [facility] Gender: M [employer]or: : 1955 Requested By: Michael Vargas Order Number: [id number] Reading MD: John Moy Measurements Intervals [place] Rate: 67 P: 16 [place]: 180 QRS: -24 QRSD: 112 T: -5 QT: 420 QTc: 444 Interpretive Statements Sinus arrhythmia Abnormal R-wave progression, early transition Inferior infarct, old Compared to ECG 11/13/2020 15:17:24 Sinus rhythm no longer present ST (T wave) deviation no longer present Myocardial infarct finding still present Electronically Signed On 11-14-2020 14:21:48 CDT by John Moy [email or web address] <ELECTRONICALLY SIGNED> By: John Moy MD, [facility] 11/14/20 1421 2 2 John Moy MD, [facility] /EPI
--- NOTE | 2020-11-15 17:37 | D ---
[address] [address] DISCHARGE SUMMARY Name: RADHA SANTOS Room: [address] Efren An#: [id number] Admission: 11/13/20 Attend Phys: Michael Vargas MD, Discharge: 11/14/20 Date of : 57 Report #: [id number] THIS REPORT FOR: cc: John Stroud MD, Michael S. MD Holkins,Michael Pettit MD [facility] ~ FINAL DISCHARGE DIAGNOSES: 1. Unstable angina. 2. Status post PTCA with stenting. 3. Coronary artery disease. 4. Hypertension. 5. Type 2 diabetes. 6. Hyperlipoproteinemia. 7. Exogenous obesity. PROCEDURES: On 11/13/2020 -- left heart catheterization, left ventriculography, selective coronary arteriography and percutaneous coronary intervention to the circumflex with atherectomy of the distal circumflex and angioplasty with stenting of the mid circumflex. The patient is a very pleasant 64-year-old [place] male with coronary artery disease, status post a prior PCIs. Most recently, several weeks ago, he presented with unstable angina and underwent stenting of the first diagonal branch and mid to distal LAD. By virtue of dye and radiation constraints, I elected to stage the additional procedure to the circumflex. He was readmitted on 11/13/2020 and angiography revealed a widely patent first diagonal and mid to distal LAD stents. I then performed an arthrotomy/atherectomy on the distal circumflex and angioplasty with stenting of the mid circumflex with 0 and 20-30% residual narrowings and ALBERT 3 flow of the distal vessel. He did well post-procedurally. LABORATORY DATA: On 11/14 revealed sodium of 138, potassium 3.7, BUN 7, creatinine 0.9, glucose 189. Hemoglobin 13.5, white blood cell count ____ with 168,000 platelets. DISCHARGE MEDICATIONS: He was discharged to home on the following medications: Lisinopril 20 mg daily, metoprolol 25 mg b.i.d., p.r.n. sublingual nitroglycerin 0.4 mg as needed, amlodipine 5 mg daily, glimepiride 4 mg b.i.d., metformin 1000 mg daily to be resumed on 11/15/2020, aspirin 81 mg daily, atorvastatin 80 mg daily, prasugrel or Effient 10 mg daily. I will plan to see the patient in followup on 12/28/2020 at 11:[place] [address] DISCHARGE SUMMARY Name: RADHA SANTOS Room: [address] Efren An#: [id number] Admission: 11/13/20 Attend Phys: Michael Vargas MD, Discharge: 11/14/20 Date of : 57 Report #: [id number] Therefore, the patient is discharged to home in stable condition on the aforementioned medications with followup as described above. <ELECTRONICALLY SIGNED> By: Michael Vargas MD, FACC 11/15/20 1737 0950 [id number] Vargas MD, [facility] /nt
== END 2020-11-14 12:16 | disposition home or self-care (01) ==
LOC: M.CL 11:00 → M.TBA-ER 15:13 → M.2W 15:13
PROVIDERS: ADMIT Internal Medicine; ATTEND Internal Medicine
DX: I25.110 Atherosclerotic heart disease of native coronary artery with unstable angina pectoris (principal); Z20.822 Contact with and (suspected) exposure to COVID-19; I10 Essential (primary) hypertension; E11.9 Type 2 diabetes mellitus without complications; E78.6 Lipoprotein deficiency; E66.09 Other obesity due to excess calories; I48.0 Paroxysmal atrial fibrillation; Z68.26 Body mass index [BMI] 26.0-26.9, adult; Z79.899 Other long term (current) drug therapy; Z79.84 Long term (current) use of oral hypoglycemic drugs